=== PATIENT | male | born 1955 | race Caucasian/White ===

== ENCOUNTER 2017-03-14 06:24 | Inpatient (IN) | payer BC, OTHER ==
[2017-02-20 11:10] VITALS: BMI 36.0
--- NOTE | 2017-02-20 11:43 | PAT Medication Instructions ---
Service Date Feb 20, 2017. Current Home Medication List Albuterol Inhaler (Ventolin Inhaler), 2 PUFFS INH Q4HR PRN Multivitamin (Multivitamin), 1 TAB PO QAM Medication Instructions For Your Scheduled Surgery - Hold the following medications the morning of surgery: Multivitamin (Multivitamin), 1 TAB PO QAM - Take the following medications the morning of surgery with a sip of water: Albuterol Inhaler (Ventolin Inhaler), 2 PUFFS INH Q4HR PRN (bring with you to hospital morning of surgery) - Take the following medications as scheduled the night before surgery: Albuterol Inhaler (Ventolin Inhaler), 2 PUFFS INH Q4HR PRN If you have any questions please call us at [phone] (Paola Conrad PA-C) or [phone] or [phone]
[2017-02-20 12:14] LABS: BASO % 0.6 %; BASO ABS # 0.04 K/uL (0-0.2); COMPLETE YES; EOS % 2.3 %; HEMATOCRIT 45.3 % (42-52); IG% 0.1 %; LYMPH % 21.2 %; LYMPH ABS # 1.54 K/uL (1.2-3.4); MEAN CELL VOLUME 87.6 fL (80-100); MEAN CORPUSCULAR HGB CONC 34.2 g/dl (32-36); MEAN PLATELET VOLUME 11.1 fL (7.4-10.4); MONO % 9.2 %; NEUT % 66.6 %; PLATELET COUNT 239 K/uL (130-400); RED BLOOD COUNT 5.17 M/uL (4.7-6.1); WHITE BLOOD COUNT 7.25 K/uL (4.8-10.8)
[2017-02-20 12:18] LABS: URINE APPEARANCE CLEAR (CLEAR); URINE BILIRUBIN NEG (NEG); URINE COLOR YELLOW; URINE NITRITE NEG (NEG); URINE PH 5.5 (4.5-7.5); URINE SPECIFIC GRAVITY 1.021 (1.000-1.030); UROBILINOGEN NEG (NEG); ZZUR CULT IF INDIC CLEAN CATCH NO
[2017-02-20 12:20] LABS: MANUAL MICROSCOPIC REQUIRED? NO; REVIEW REQ? NO
--- NOTE | 2017-02-20 12:25 | DIAGNOSTIC IMAGING REPORT ---
CHEST PREADMISSION(PA/LAT) HISTORY: Preop. COMPARISON: Chest 06/06/2012. FINDINGS: The lungs are clear. Cardiac silhouette is normal in size. No pleural effusions. No pneumothorax. IMPRESSION: No acute process. Electronically signed by: Guy Vasquez M.D. 02/20/2017 12:23 PM Dictated Date/Time: 02/20/2017 12:22 PM
[2017-02-20 12:31] LABS: PARTIAL THROMBOPLASTIN RATIO 1.1; PROTHROMBIN TIME (PATIENT) 10.7 SECONDS (9.0-12.0)
[2017-02-20 13:13] LABS: ESTIMATED AVERAGE GLUCOSE 128 mg/dl; HA1C FLAG Normal (Normal)
[2017-02-20 13:21] LABS: BUN/CREATININE RATIO 11.3 (10-20); CALCIUM 8.8 mg/dl (8.5-10.1); CREATININE 1.2 mg/dl (0.60-1.40); POTASSIUM 3.8 mmol/L (3.5-5.1)
--- NOTE | 2017-03-13 20:28 | HISTORY & PHYSICAL EXAMINATION ---
DATE OF ADMISSION: 03/14/2017 CHIEF COMPLAINT: Chronic left knee pain. HISTORY OF PRESENT ILLNESS: This is a 61-year-old male patient of Dr. Ramirez'norm complaining of chronic left knee pain, longstanding, now progressively getting worse. The patient has been diagnosed with end-stage osteoarthritis per clinical and radiographic exams. The patient has failed conservative treatment including anti-inflammatories, Tylenol, intra-articular injections, home physical therapy and the use of a brace. The patient has increased pain with weightbearing activities and his pain does interfere with his activities of daily living. PAST MEDICAL HISTORY: Hypertension, asthma, mild sleep apnea and kidney stones. SOCIAL HISTORY: Nonsmoker and nondrinker. PAST SURGICAL HISTORY: Right total knee arthroplasty and left knee cartilage surgery. REVIEW OF SYSTEMS: The patient complains of chronic left knee pain. Otherwise denies any shortness of breath, chest pain, nausea, vomiting or other joint complaints. FAMILY HISTORY: Noncontributory. MEDICATION: Only a multivitamin daily. ALLERGIES: No known drug allergies. PHYSICAL EXAMINATION: GENERAL: Well-developed and well-nourished 61-year-old male, in no acute distress. He is alert, oriented x3 and pleasant. HEENT: Normocephalic and atraumatic. Extraocular motions are intact. Pupils are equal and reactive to light. HEART: Regular rate and rhythm. No murmurs are appreciated. LUNGS: Clear. ABDOMEN: Soft and nontender, bowel sounds are present. EXTREMITIES: Left knee reveals limited range of motion of 0-125 degrees. He is stable. He has previous scars noted from surgeries in the past. He has mild effusion. He has crepitation with passive range of motion. He has 5/5 strength. NEUROLOGIC: Neurovascularly, he is intact in his left lower extremity. DIAGNOSES: Left knee end-stage osteoarthritis, hypertension, asthma, mild sleep apnea and kidney stones. PLAN: The patient was advised of his diagnoses. Indications, risks, benefits, and postop course have all been reviewed. The patient wishes to proceed with a left total knee arthroplasty. Necessary consent forms, preoperative testing and clearances will be obtained.
[~2017-03-14] VITALS: Ht 165.1 cm; Wt 100.0 kg
[2017-03-14] VITALS (8 sets, daily range): BP systolic 130–160; BP diastolic 63–105; PULSE 52–91; TEMP 36.4–36.7; O2SAT 93–96; Ht 165.1 cm; Wt 100.0 kg
[~2017-03-14 06:24] MED LIST: ACETAMINOPHEN 500 MG TAB PO SCH; ALBUAER19 INH; CEFAZOLIN 2000 MG/60 ML D5W 60 ML IV SCH; CeleBREX 200 MG CAP PO SCH; DEXAMETHASONE 4 MG TAB PO SCH; FAMOTIDINE 20 MG TAB PO SCH; GABAPENTIN 300 MG CAP PO SCH; LACTATED RINGER'S 1000ML 1,000 ML IV SCH; METOCLOPRAMIDE HCL 10 MG TAB PO SCH; MULT-506 PO; ROPIVACAINE 5MG/ML 30 ML 150 MG, BUPIVACAINE/EPINEPHR 0.5% MPF 30 ML, KETOROLAC TROMETH... INFIL SCH
[2017-03-14] MEDS ORDERED: BUPIVACAINE 0.5 % 5 MG/1 ML PF 10ML VIAL ONE (06:36)
--- NOTE | 2017-03-14 07:11 | History & Physical Bridge Note ---
H&P Re-Evaluation Bridge Note: I have examined the patient, reviewed the History & Physical and in the interval since the performance of the History & Physical I have noted the following changes of clinical significance: No changes noted
[2017-03-14] MEDS ORDERED: MIDAZOLAM HCL 1 MG/ML 2ML VIAL ONE (07:20)
[2017-03-14] MEDS ORDERED: FENTANYL CITRATE INJ 50 MCG/1 ML 2 ML VIAL ONE (07:20)
[2017-03-14] MEDS ORDERED: POVIDONE-IODINE OP SOLN 30 ML BTL ONE (07:49)
[2017-03-14] MEDS ORDERED: ORTHO JOINT ANESTHETIC ONE (07:49)
[2017-03-14] MEDS ORDERED: BACITRACIN 50000 UNIT VIAL ONE (07:49)
[2017-03-14] MEDS ORDERED: PROPOFOL IV EMULSION 10 MG/ML 20 ML VIAL IV ONE (09:00)
[2017-03-14] MEDS ORDERED: ATROPINE SULFATE 0.1 MG/ML 5ML SYR IV PRN (09:15)
[2017-03-14] MEDS ORDERED: ONDANSETRON INJ 2 MG/ML 2 ML VIAL IV PRN (09:15)
[2017-03-14] MEDS ORDERED: FENTANYL CITRATE INJ 50 MCG/1 ML 2 ML VIAL IV PRN (09:15)
[2017-03-14] MEDS ORDERED: EpHEDrine SULFATE INJ 50 MG/ML AMP IV PRN (09:15)
--- NOTE | 2017-03-14 10:21 | [facility] Operative Report ---
Operative Report Operative Date Mar 14, 2017. Pre-Operative Diagnosis Left knee end stage osteoarthritis Post-Operative Diagnosis same Procedure(s) Performed left tka Surgeon Dr. Ramirez Desktop Administrator Surgeon(s) Cristhian Perez PA-C Estimated Blood Loss 5 cc Findings partial acl tear grade 4 djd medial comp varus knee subluxation medial Specimens A:Left knee bone and tissue Drains 2 hemovac Anesthesia spinal regional block and orthomix Complication(s) None Disposition Recovery Room / PACU Indications end stage djd instability I attest to the content of the Intraoperative Record and any orders documented therein. Any exceptions are noted below.
[2017-03-14] MEDS ORDERED: MoRPHine SULFATE 2 MG/ML CARP IV PRN (11:00)
[2017-03-14] MEDS ORDERED: TAMSULOSIN HCL 0.4 MG CAP PO PRN (11:00)
[2017-03-14] MEDS ORDERED: ALBUTEROL HFA 8 GM INHALER INH PRN (11:00)
[2017-03-14] MEDS ORDERED: ALUMINUM/MAGNESIUM/SIMETH (MAALOX MAX) 30 ML UDC PO PRN (11:00)
[2017-03-14] MEDS ORDERED: BISACODYL 10 MG SUPP PR PRN (11:00)
[2017-03-14] MEDS ORDERED: MAGNESIUM HYDROXIDE SUSP 30 ML UDC PO PRN (11:00)
--- NOTE | 2017-03-14 11:37 | DIAGNOSTIC IMAGING REPORT ---
LEFT KNEE 1 OR 2 VIEWS ROUTINE CLINICAL HISTORY: Degenerative arthritis COMPARISON: None. DISCUSSION: There are postsurgical changes of a total left knee arthroplasty and patellar resurfacing. The femoral and tibial components appear well seated. Overlying skin aruna and surgical drains are evident. There is air in the soft tissues consistent with the history of recent surgery. IMPRESSION: Postsurgical changes of a total left arthroplasty Electronically signed by: Asaf Alcantar M.D. 03/14/2017 11:35 AM Dictated Date/Time: 03/14/2017 11:35 AM
--- NOTE | 2017-03-14 12:29 | Anesthesiology Progress Note ---
Anesthesia Post Op Note Date & Time Mar 14, 2017 at 12:28 Vital Signs Pain Intensity: 0 Vital Signs Past 12 Hours Date Time Temp Pulse Resp B/P Pulse Ox O2 Delivery O2 Flow Rate FiO2 03/14/17 11:45 55 12 128/84 96 Nasal Cannula 2 03/14/17 11:30 36.0 58 13 136/87 94 Nasal Cannula 2 03/14/17 11:20 56 12 151/88 95 Nasal Cannula 2 03/14/17 11:10 80 20 144/87 96 Nasal Cannula 2 03/14/17 11:00 67 15 126/89 97 Nasal Cannula 2 03/14/17 10:52 36.0 76 20 152/98 97 Nasal Cannula 2 03/14/17 06:49 36.7 52 18 160/98 96 Room Air Notes Mental Status: alert / awake / arousable, participated in evaluation Pt Amnestic to Procedure: Yes Nausea / Vomiting: adequately controlled Pain: adequately controlled Airway Patency, RR, SpO2: stable & adequate BP & HR: stable & adequate Hydration State: stable & adequate Neuraxial Anesthesia: was administered, sensory block is resolving Anesthetic Complications: no major complications apparent
[2017-03-14] MEDS ORDERED: MoRPHine SULFATE 4 MG/ML 1 ML CARP\\VIAL IV PRN (12:45)
[2017-03-14] MEDS ORDERED: MoRPHine SULFATE 10 MG/ML CARP/VIAL IV PRN (12:45)
[2017-03-14] MEDS: TRANEXAMIC ACID INJ 1,000 MG in SODIUM CHLORIDE 0.9% 100ML 100 ML IV SCH (14:03)
[2017-03-14] MEDS: D5W AND 1/2NSS + 20MEQ KCL 1,000 ML IV SCH ×2 (14:06→22:40)
[2017-03-14] MEDS: KETOROLAC TROMETHAMINE 30 MG/ML VIAL IV. SCH ×3 (14:12→22:40)
[2017-03-14] MEDS: FERROUS GLUCONATE 324 MG TAB PO SCH ×2 (14:23→17:53)
[2017-03-14] MEDS: ACETAMINOPHEN 500 MG TAB PO SCH ×2 (14:23→22:40)
--- NOTE | 2017-03-14 14:50 | Progress Note ---
Progress Note Date of Service Mar 14, 2017. Progress Note Patient was seen and evaluated with BETH Nix. Patient is status post left knee arthroplasty; pod # 1 Pain is controlled, denies any chest pain, SOB, nausea, vomiting, fever, chills Exam: Gen: AAOX3, no distress Lungs: clear, no wheezing Heart: S1, S2 normal, no murmurs Ext: S/P left knee arthroplasty A/P: 1. S/P LEFT KNEE ARTHROPLASTY -POD # 1 -Pain mx, Wound care, DVT prophylaxis, PT/OT per primary team -Monitor H & H 2. HTN- Not on any medications at home. In past was on HCTZ -Will monitor, try to control pain medications 3.Hx OF ASTHMA -Stable, no signs of exacerbation DVT/GI prophylaxis Protonix daily, DVT prophylaxis per primary team Agree with A/P of BETH Nix
--- NOTE | 2017-03-14 14:57 | Medical Consult ---
Consultation Date of Consultation: Mar 14, 2017. Attending Physician: Philippe Ramirez M.D. Reason for Consultation: med mgmt History of Present Illness This is a 61 y/o male with PMHx of HTN who presents POD 0 s/p L TKA performed by Dr. Ramirez. Pt is doing well post-operatively. He denies any pain and ate lunch with no issues. Pt denies fever/chills, chest pain, SOB, abd pain, N/V, bowel or bladder issues, LE edema, calf pain, lightheadedness/dizziness. Past Medical/Surgical History Medical Problems: (1) HTN (hypertension) Status: Chronic Surgical Problems: (1) Hx of total knee arthroplasty Permanent Comment: R TKA 2011 and L TKA 03/14/17 Status: Resolved Social History Smoking Status: Never Smoker Smokeless Tobacco Use: Yes (1 can per day x 45 years) Alcohol Use: none Drug Use: none Marital Status: ( in 2003 from ovarian CA) Allergies Coded Allergies: No Known Allergies (Unverified , 03/14/17) Home Medications Active Reported Multivitamin (Multivitamins) Tab 1 Tab PO QAM Ventolin Inhaler (Albuterol) Aers 2 Puffs INH Q4HR PRN Current Inpatient Medications Current Inpatient Medications Medications (Trade) Dose Ordered Sig/Dario Route Start Time Stop Time Status Last Admin Dose Admin Lactated Ringer's 1,000 ml @ 15 mls/hr Q24H IV 03/14/17 06:00 03/15/17 05:59 03/14/17 07:09 15 MLS/HR Cefazolin Sodium (Ancef 2000mg/60 ml D5W) 60 ml @ 100 mls/hr PREOP IV 03/14/17 06:00 03/14/17 18:00 03/14/17 08:45 100 MLS/HR Acetaminophen (Tylenol Tab) 1,000 mg PREOP PO 03/14/17 06:00 03/14/17 18:00 03/14/17 07:18 1,000 MG Celecoxib (CeleBREX CAP) 200 mg PREOP PO 03/14/17 06:00 03/14/17 18:00 03/14/17 07:18 200 MG Dexamethasone (Decadron Tab) 8 mg PREOP PO 03/14/17 06:00 03/14/17 18:00 03/14/17 07:18 8 MG Famotidine (Pepcid Tab) 20 mg PREOP PO 03/14/17 06:00 03/14/17 18:00 03/14/17 07:19 20 MG Gabapentin (Neurontin Cap) 600 mg PREOP PO 03/14/17 06:00 03/14/17 18:00 03/14/17 07:19 600 MG Metoclopramide HCl 10 mg 10 mg PREOP PO 03/14/17 06:00 03/14/17 18:00 03/14/17 07:19 10 MG Tranexamic Acid 1000 mg/Sodium Chloride 110 ml @ 660 mls/hr TODAY@06,0630 IV 03/14/17 06:00 03/14/17 18:00 Lactated Ringer's (Lr 1000ml) 1,000 ml @ 60 mls/hr [id number] IV 03/14/17 06:00 03/14/17 22:39 03/14/17 07:09 60 MLS/HR Albuterol (Ventolin Hfa Inhaler) 2 puffs Q4H PRN INH 03/14/17 11:00 04/13/17 10:59 Morphine Sulfate 2 mg 2 mg Q4HWA PRN IV 03/14/17 11:00 03/28/17 10:59 Potassium Chloride/Dextrose/ Sod Cl 1,000 ml @ 100 mls/hr Q10H IV 03/14/17 13:00 03/15/17 10:52 03/14/17 14:06 100 MLS/HR Cefazolin Sodium/ Dextrose (Ancef Iv/D5 50ml) 60 ml @ 100 mls/hr Q8H IV 03/14/17 16:00 03/15/17 00:35 Ketorolac Tromethamine (Toradol Inj) 30 mg Q6H IV. 03/14/17 14:00 03/15/17 08:01 03/14/17 14:12 30 MG Celecoxib (CeleBREX CAP) 200 mg BID PO 03/15/17 21:00 04/14/17 20:59 Oxycodone HCl (Roxicodone Immediate Rel Tab) 1 TABLET FOR PAIN RATING... Q4H PRN PO 03/14/17 11:00 03/28/17 10:59 Oxycodone HCl (Oxycontin Tab) 10 mg Q12 PO 03/14/17 21:00 03/28/17 20:59 Acetaminophen (Tylenol Tab) 1,000 mg Q8H PO 03/14/17 14:00 04/13/17 10:59 03/14/17 14:23 1,000 MG Magnesium Hydroxide (Milk Of Magnesia Susp) 30 ml Q6H PRN PO 03/14/17 11:00 04/13/17 10:59 Bisacodyl (Dulcolax Supp) 10 mg DAILY PRN RI 03/14/17 11:00 04/13/17 10:59 Senna (Senokot Tab) 17.2 mg HS PO 03/14/17 21:00 04/13/17 20:59 Docusate Sodium (coLACE CAP) 100 mg BID PO 03/14/17 21:00 04/13/17 20:59 Al Hydrox/Mg Hydrox/Simethicone (Maalox Max Susp) 15 ml Q4H PRN PO 03/14/17 11:00 04/13/17 10:59 Multivitamins (Multivitamin Tab) 1 tab QAM PO 03/15/17 09:00 04/14/17 08:59 Ferrous Gluconate (Ferrous Gluconate Tab) 324 mg TIDM PO 03/14/17 12:30 04/13/17 12:29 03/14/17 14:23 324 MG Pantoprazole Sodium (Protonix Tab) 40 mg QAM PO 03/15/17 09:00 04/14/17 08:59 Tamsulosin HCl (Flomax Cap) 0.4 mg QAM PRN PO 03/14/17 11:00 04/13/17 10:59 Aspirin (Ecotrin Tab) 81 mg BID PO 03/14/17 21:00 04/13/17 20:59 Morphine Sulfate (MoRPHine SULFATE INJ) 4 mg Q4HWA PRN IV 03/14/17 12:45 03/28/17 12:44 Morphine Sulfate (MoRPHine SULFATE INJ) 6 mg Q4HWA PRN IV 03/14/17 12:45 03/28/17 12:44 Review of Systems Constitutional: No chills, No fatigue, No fever, No weakness Eyes: No worsening of vision ENT: No hearing loss Respiratory: No cough, No shortness of breath Cardiovascular: No chest pain, No claudication, No edema Abdomen: No constipation, No diarrhea, No nausea, No pain, No vomiting Musculoskeletal: No calf pain, No swelling Genitourinary - Male: No dysuria Neurologic: No weakness Psychiatric: No depression symptoms Endocrine: No fatigue Hematologic / Lymphatic: No abnormal bleeding/bruising Integumentary: No new/changing skin lesions Physical Exam Date Time Temp Pulse Resp B/P Pulse Ox O2 Delivery O2 Flow Rate FiO2 03/14/17 14:05 36.4 88 16 156/99 94 Nasal Cannula 2.0 03/14/17 13:05 88 16 157/105 93 Nasal Cannula 2.0 03/14/17 12:33 36.4 60 18 140/86 95 Room Air 03/14/17 12:05 96 Nasal Cannula 2.0 03/14/17 12:05 95 Nasal Cannula 2.0 03/14/17 12:05 36.5 62 15 138/76 96 Nasal Cannula 2.0 03/14/17 11:45 55 12 128/84 96 Nasal Cannula 2 03/14/17 11:30 36.0 58 13 136/87 94 Nasal Cannula 2 03/14/17 11:20 56 12 151/88 95 Nasal Cannula 2 03/14/17 11:10 80 20 144/87 96 Nasal Cannula 2 03/14/17 11:00 67 15 126/89 97 Nasal Cannula 2 03/14/17 10:52 36.0 76 20 152/98 97 Nasal Cannula 2 03/14/17 06:49 36.7 52 18 160/98 96 Room Air General Appearance: WD/WN, no apparent distress, + pertinent finding (Pt is sitting up in bed with no family at bedside ) Head: normocephalic, atraumatic Eyes: normal inspection ENT: hearing grossly normal Neck: supple Respiratory/Chest: chest non-tender, lungs clear, normal breath sounds, no respiratory distress Cardiovascular: regular rate, rhythm, no edema, no murmur Abdomen/GI: normal bowel sounds, non tender, soft Back: normal inspection Extremities/Musculoskelatal: no calf tenderness, no pedal edema, + pertinent finding (surgical dressing in place over L knee with 1 drain noted containing blood) Neurologic/Psych: alert, normal mood/affect, oriented x 3 Skin: normal color, warm/dry Assessment & Plan L KNEE DJD S/P L TKA -POD 0; surgery performed by Dr. Ramirez -post-operative pain well managed -monitor for acute blood loss with daily H&H -pt encouraged to utilize spirometry to prevent post-op infection -PT/OT -activity and wound care orders per ortho protocol -will continue to follow HTN -BP stable -not on any meds -monitor DVT PROPHYLAXIS -per ortho protocol CODE STATUS -FULL CODE status DISPO -per ortho. Pt seen in collaboration with Dr. Hopkins. Please see her addendum for further details. Thanks! -Of note: patient will be seen by Dr. Mckeon starting tomorrow AM.
[2017-03-14] MEDS: CEFAZOLIN IV 2,000 MG in DEXTROSE 5% 50ML 50 ML IV SCH ×2 (15:50→23:49)
--- NOTE | 2017-03-14 16:25 | OPERATIVE REPORT ---
DATE OF OPERATION: 03/14/2017 INDICATION FOR PROCEDURE: The patient is a 61-year-old male who is status post a right knee replacement in the past. His left knee has had progressive osteoarthritis. Now, he has subluxation of the femur on the tibia. He is bone on bone in flexion views with some flattening of the femoral condyle. Primarily a varus knee with medial compartment OA. PREOPERATIVE DIAGNOSIS: End-stage osteoarthritis, left knee. POSTOPERATIVE DIAGNOSIS: Same. PROCEDURE: Left total knee arthroplasty. SURGEON: Dr. Ramirez. SOLID WASTE COLLECTION WORKER: Cristhian Perez PA-C. ANESTHESIA: Spinal IV sedation, regional block and Orthomix. OPERATION AND FINDINGS: OPERATIVE PROCEDURE: The patient was taken to the operating room, anesthetized under spinal anesthetic with regional block. The patient's left leg was examined and demonstrated some instability with Natalia exam and some pseudolaxity medially and some subluxation of the femur on the tibia. The pneumatic tourniquet was placed on left upper thigh. Left lower extremity was prepped and draped in sterile fashion using ChloraPrep. Knee exam did also show that he had good range of motion. The leg was elevated, exsanguinated with Esmarch bandage. Pneumatic tourniquet was raised to 325 mmHg. Anterior incision was made across the left knee. Skin was incised sharply. Subcutaneous flaps were elevated. We used his old incision where he had an old scar from his previous surgery in the past which was S-shaped medial parapatellar type incision and this incision was used for the procedure and extended slightly proximally to length that incision. We elevated the subcutaneous flaps and incised the medial retinaculum, extended the incision up into the mid third of the quadriceps tendon and extended it down to the medial tibial tubercle. The patient had grade 4 DJD medial compartment, more toward the flexion surface and had a partial ACL tear. Patella was normal. I used the Claire \T\ Nephew Journey 2.0, total knee arthroplasty system using [employer] MRI templating. It was sized for an 8 femur and 7 tibia. The knee was exposed by excising the infrapatellar fat pad, excising the menisci, excising the cruciate ligaments. We did releases around the proximal medial tibial plateau. I excised the fat pad over the anterior femur for placement of the component in that area and released lateral synovial bands. The infrapatellar fat pad was resected. The femur was then exposed. The femoral cutting block was pinned in position. Distal femoral cut was made. The 5-1 cutting block was placed with a size 8 femur. The anterior, posterior and chamfer cuts were made. Then the knee was extended and then a subperiosteal peel lateral release was performed around the patella. Patella width was measured and width was reproduced using a freehand cut technique and a 35 patella component was appropriate size. Drill holes were made for the pegs and the excess lateral facet was beveled off to prevent any impingement. Then attention was taken back to the tibia which was subluxed and the tibial cutting block was pinned in position and the proximal tibial cut was made. Lamina switch tender was used to assess ligamentous balance in extension and flexion, ligaments were balanced. Then the tibia was re-exposed and the size 7 tibial trial was externally rotated in line with the tibial tubercle, pinned in position. The punch for the stem was used. Then the 8 femoral trial was inserted, centered and the notch cutting devices were used. A collet was placed and then the 10 polyethylene trial insert was placed in position and the patient had balanced ligaments through full range of motion and the patella tracked centrally. The trials were removed. The Orthomix was injected per protocol. The knee was copiously irrigated with pulsatile lavage antibiotic solution and bacitracin. The final components were then cemented with Simplex cement. Final components were the 8 Oxinium posterior stabilized left femoral component, the 7 tibial base plate, the 10 mm posterior stabilized poly insert and 35 mm patella. While cement cures we used a Betadine soap protocol. Then after cement cured, the knee was copiously irrigated with antibiotic solution with bacitracin. Two drains were brought out laterally. Quadriceps tendon and medial retinaculum were then closed with interrupted [id number] #1 Vicryl sutures. More Orthomix was injected into subcutaneous tissues. Subcutaneous tissues closed with interrupted 2-0 Vicryl, skin closed with aruna. Sterile dressing was applied and the patient tolerated the procedure well. Cristhian Perez PA-C was my first cook. He functioned as my first cook for the entire procedure. He assisted in patient positioning, prepping, draping, soft tissue retraction, leg positioning, instrument management during the procedure and performed the fascial, subcutaneous and skin closure and will participate in postoperative care of the patient. I attest to the content of the Intraoperative Record and any orders documented therein. Any exceptio ns are noted below.
[2017-03-14] MEDS: SENNA 8.6 MG TAB PO SCH (20:30)
[2017-03-14] MEDS: OXYCODONE HCL 10 MG TABCR (OXYCONTIN) PO SCH (20:30)
[2017-03-14] MEDS: DOCUSATE SODIUM 100 MG CAP PO SCH (20:31)
[2017-03-14] MEDS: ASPIRIN 81 MG ECTAB PO SCH (20:31)
[2017-03-15] MEDS: KETOROLAC TROMETHAMINE 30 MG/ML VIAL IV. SCH ×2 (01:41→08:28)
[2017-03-15 03:27] VITALS: BP 109/64; PULSE 66; TEMP 36.7; O2SAT 95
[2017-03-15] MEDS: ACETAMINOPHEN 500 MG TAB PO SCH ×3 (05:40→21:48)
[2017-03-15 06:28] LABS: HEMATOCRIT 39.4 % (42-52); MEAN CELL VOLUME 89.7 fL (80-100); MEAN CORPUSCULAR HEMOGLOBIN 30.1 pg (25-34); MEAN CORPUSCULAR HGB CONC 33.5 g/dl (32-36); PLATELET COUNT 204 K/uL (130-400); RED BLOOD COUNT 4.39 M/uL (4.7-6.1); WHITE BLOOD COUNT 22.46 K/uL (4.8-10.8)
[2017-03-15 06:54] LABS: BUN/CREATININE RATIO 14.3 (10-20); CALCIUM 8.2 mg/dl (8.5-10.1); CREATININE 1.3 mg/dl (0.60-1.40); POTASSIUM 3.9 mmol/L (3.5-5.1)
--- NOTE | 2017-03-15 07:37 | Anesthesiology Progress Note ---
Anesthesia Post Op Note Date & Time Mar 15, 2017 at 07:36 Vital Signs Pain Intensity: 0.0 Vital Signs Past 12 Hours Date Time Temp Pulse Resp B/P Pulse Ox O2 Delivery O2 Flow Rate FiO2 03/15/17 03:27 36.7 66 16 109/64 95 Room Air 03/14/17 23:45 Room Air 03/14/17 23:33 36.7 69 16 130/63 94 Room Air 03/14/17 21:31 Room Air 03/14/17 20:38 36.6 70 18 133/79 94 Room Air Notes Mental Status: alert / awake / arousable, participated in evaluation Pt Amnestic to Procedure: Yes Nausea / Vomiting: adequately controlled Pain: adequately controlled Airway Patency, RR, SpO2: stable & adequate BP & HR: stable & adequate Hydration State: stable & adequate Neuraxial Anesthesia: was administered, sensory block resolved Anesthetic Complications: no major complications apparent
[2017-03-15 07:40] VITALS: BP 159/76; PULSE 65; TEMP 36.5; O2SAT 94
--- NOTE | 2017-03-15 08:23 | Orthopedic Progress Note ---
Orthopedic Progress Note Date of Service Mar 15, 2017. Subjective Post OP Day: 1 Reports: feeling well, pain controlled w PO medications, Denies: SOB, calf pain , chest pain, complaints, light headedness, nausea / vomiting Objective calves soft nontender, N/V intact, capillary refill less than 2 sec., dressing C /D/I, A&O x3, toes mobile Date Time Temp Pulse Resp B/P Pulse Ox O2 Delivery O2 Flow Rate FiO2 03/15/17 07:40 36.5 65 18 159/76 94 Room Air 03/15/17 07:40 Room Air 03/15/17 03:27 36.7 66 16 109/64 95 Room Air 03/14/17 23:45 Room Air 03/14/17 23:33 36.7 69 16 130/63 94 Room Air 03/14/17 21:31 Room Air 03/14/17 20:38 36.6 70 18 133/79 94 Room Air 03/14/17 15:37 Nasal Cannula 2.0 03/14/17 15:01 36.6 91 16 145/91 95 Nasal Cannula 2.0 03/14/17 14:05 36.4 88 16 156/99 94 Nasal Cannula 2.0 03/14/17 13:05 88 16 157/105 93 Nasal Cannula 2.0 03/14/17 12:33 36.4 60 18 140/86 95 Room Air 03/14/17 12:05 96 Nasal Cannula 2.0 03/14/17 12:05 95 Nasal Cannula 2.0 03/14/17 12:05 36.5 62 15 138/76 96 Nasal Cannula 2.0 03/14/17 11:45 55 12 128/84 96 Nasal Cannula 2 03/14/17 11:30 36.0 58 13 136/87 94 Nasal Cannula 2 03/14/17 11:20 56 12 151/88 95 Nasal Cannula 2 03/14/17 11:10 80 20 144/87 96 Nasal Cannula 2 03/14/17 11:00 67 15 126/89 97 Nasal Cannula 2 03/14/17 10:52 36.0 76 20 152/98 97 Nasal Cannula 2 Laboratory Results 24 Hours: Test 03/15/17 05:46 Hematocrit 39.4 % Hemoglobin 13.2 g/dL Assessment & Plan Assessment: POD #1, Left TKA Plan: PT/OT DVT proph- ASA D/C planning- [place] [facility] Appreciate medicine input Inhouse Planning Pain Management: Celebrex, Oxycontin, Morphine, PO Tylenol, Oxy IR, Vicodin DVT Prophylaxis: TEDs, SCDs, ASA Discharge Planning Discharge Planning: residential facility Pain Management: Celebrex, Oxycontin, PO Tylenol, Oxy IR DVT Prophylaxis: TEDs, ASA Therapy: Physical Therapy, Occupational Therapy
[2017-03-15] MEDS: FERROUS GLUCONATE 324 MG TAB PO SCH ×3 (08:28→17:59)
[2017-03-15] MEDS: OXYCODONE HCL 10 MG TABCR (OXYCONTIN) PO SCH ×2 (08:29→20:15)
[2017-03-15] MEDS: D5W AND 1/2NSS + 20MEQ KCL 1,000 ML IV SCH (08:29)
[2017-03-15] MEDS: PANTOprazole SOD 40 MG TAB PO SCH (08:30)
[2017-03-15] MEDS: DOCUSATE SODIUM 100 MG CAP PO SCH ×2 (08:30→20:14)
[2017-03-15] MEDS: ASPIRIN 81 MG ECTAB PO SCH ×2 (08:30→20:14)
[2017-03-15] MEDS: MULTIVITAMIN TAB PO SCH (08:31)
[2017-03-15 12:10] VITALS: BP 133/75; PULSE 60; TEMP 36.4; O2SAT 96
[2017-03-15 15:25] VITALS: BP 153/87; PULSE 60; TEMP 36.6; O2SAT 97
--- NOTE | 2017-03-15 18:05 | Progress Note ---
Internal Med Progress Note Date of Service: Mar 15, 2017. Provider Documentation: SUBJECTIVE: S/P LEFT KNEE TKA PAIN IS UNDER CONTROL NO SOB NO COMPLAINTS OBJECTIVE: Vital Signs-as noted below Exam: General-Alert and oriented ENT-normal hearing Neck-no neck masses Lungs-cta b/l no wheezing or crackles Heart-s1 and s2 heard regular rate and rhythm no murmurs Abdomen-soft bowel sounds present non tender no distension Extremities-S/P LEFT TKA DRESSING AND RAIN INTACT Neuro-Alert and oriented moves extremities Lab data as noted below. ASSESSMENT & PLAN: L KNEE DJD S/P L TKA -POD [address] Ramirez management as per ortho HTN borderline not on meds stable will monitor DVT PROPHYLAXIS as per ortho DISPOSITION as per ortho Vital Signs: Date Time Temp Pulse Resp B/P Pulse Ox O2 Delivery O2 Flow Rate FiO2 03/15/17 15:25 36.6 60 18 153/87 97 Room Air 03/15/17 12:10 36.4 60 14 133/75 96 Room Air 03/15/17 07:40 36.5 65 18 159/76 94 Room Air 03/15/17 07:40 Room Air 03/15/17 03:27 36.7 66 16 109/64 95 Room Air 03/14/17 23:45 Room Air 03/14/17 23:33 36.7 69 16 130/63 94 Room Air 03/14/17 21:31 Room Air 03/14/17 20:38 36.6 70 18 133/79 94 Room Air Lab Results: Results Past 24 Hours Test 03/15/17 05:46 Range/Units White Blood Count 22.46 4.8-10.8 K/uL Red Blood Count 4.39 4.7-6.1 M/uL Hemoglobin 13.2 14.0-18.0 g/dL Hematocrit 39.4 42-52 % Mean Corpuscular Volume 89.7 80-100 fL Mean Corpuscular Hemoglobin 30.1 25-34 pg Mean Corpuscular Hemoglobin Concent 33.5 32-36 g/dl RDW Standard Deviation 43.3 36.4-46.3 fL RDW Coefficient of Variation 13.2 11.5-14.5 % Platelet Count 204 130-400 K/uL Mean Platelet Volume 12.0 7.4-10.4 fL Sodium Level 141 136-145 mmol/L Potassium Level 3.9 3.5-5.1 mmol/L Chloride Level 110 98-107 mmol/L Carbon Dioxide Level 25 21-32 mmol/L Anion Gap 6.0 3-11 mmol/L Blood Urea Nitrogen 19 7-18 mg/dl Creatinine 1.30 0.60-1.40 mg/dl Est Creatinine Clear Calc Drug Dose 64.9 ml/min Estimated GFR () 68.3 Estimated GFR (Non- 58.9 BUN/Creatinine Ratio 14.3 10-20 Random Glucose 134 70-99 mg/dl Calcium Level 8.2 8.5-10.1 mg/dl
[2017-03-15] MEDS: SENNA 8.6 MG TAB PO SCH (20:16)
[2017-03-15] MEDS: CeleBREX 200 MG CAP PO SCH (20:16)
[2017-03-15 23:16] VITALS: BP 135/79; PULSE 61; TEMP 36.5; O2SAT 96
[2017-03-16] MEDS: ACETAMINOPHEN 500 MG TAB PO SCH ×3 (05:28→21:19)
[2017-03-16 05:50] VITALS: BP 156/88; PULSE 64; TEMP 36.8; O2SAT 91
[2017-03-16] MEDS: ASPIRIN 81 MG ECTAB PO SCH ×2 (07:54→21:18)
[2017-03-16] MEDS: MULTIVITAMIN TAB PO SCH (07:55)
[2017-03-16] MEDS: CeleBREX 200 MG CAP PO SCH ×2 (07:55→21:17)
[2017-03-16] MEDS: DOCUSATE SODIUM 100 MG CAP PO SCH ×2 (07:55→21:17)
[2017-03-16] MEDS: FERROUS GLUCONATE 324 MG TAB PO SCH ×3 (07:55→18:10)
[2017-03-16] MEDS: OXYCODONE HCL 10 MG TABCR (OXYCONTIN) PO SCH ×2 (07:55→21:17)
[2017-03-16] MEDS: PANTOprazole SOD 40 MG TAB PO SCH (07:55)
[2017-03-16] MEDS: OXYCODONE HCL IR 5 MG TAB (IMMEDIATE RELEASE) PO PRN ×2 (07:55→21:17)
--- NOTE | 2017-03-16 08:23 | Orthopedic Progress Note ---
Orthopedic Progress Note Date of Service Mar 16, 2017. Subjective Post OP Day: 2 Reports: feeling well, pain controlled w PO medications, Denies: SOB, calf pain , chest pain, complaints, light headedness, nausea / vomiting Objective calves soft nontender, N/V intact, capillary refill less than 2 sec., incision C /D/I, A&O x3, toes mobile Date Time Temp Pulse Resp B/P Pulse Ox O2 Delivery O2 Flow Rate FiO2 03/16/17 05:50 36.8 64 16 156/88 91 Room Air 03/15/17 23:16 36.5 61 18 135/79 96 Room Air 03/15/17 20:00 Room Air 03/15/17 15:25 36.6 60 18 153/87 97 Room Air 03/15/17 12:10 36.4 60 14 133/75 96 Room Air Assessment & Plan Assessment: POD #2, Left TKA Plan: PT/OT DVT proph- ASA D/C planning- [place] Sat Appreciate medicine input Inhouse Planning Pain Management: Celebrex, Oxycontin, Morphine, PO Tylenol, Oxy IR, Vicodin DVT Prophylaxis: TEDs, SCDs, ASA Discharge Planning Discharge Planning: alf facility Pain Management: Celebrex, Oxycontin, PO Tylenol, Oxy IR DVT Prophylaxis: TEDs, ASA Therapy: Physical Therapy, Occupational Therapy
[2017-03-16 14:59] VITALS: BP 160/90; PULSE 60; TEMP 36.4; O2SAT 97
--- NOTE | 2017-03-16 17:57 | Progress Note ---
Internal Med Progress Note Date of Service: Mar 16, 2017. Provider Documentation: SUBJECTIVE: S/P LEFT KNEE TKA denies any pain ambulating fine afebrile no complaints OBJECTIVE: Vital Signs-as noted below Exam: General-Alert and oriented ENT-normal hearing Neck-no neck masses Lungs-cta b/l no wheezing or crackles Heart-s1 and s2 heard regular rate and rhythm no murmurs Abdomen-soft bowel sounds present non tender no distension Extremities-S/P LEFT TKA DRESSING AND RAIN INTACT Neuro-Alert and oriented moves extremities Lab data as noted below. ASSESSMENT & PLAN: L KNEE DJD S/P L TKA -POD [address] Ramirez management as per ortho HTN borderline not on meds stable DVT PROPHYLAXIS as per ortho DISPOSITION as per ortho Vital Signs: Date Time Temp Pulse Resp B/P Pulse Ox O2 Delivery O2 Flow Rate FiO2 03/16/17 14:59 36.4 60 16 160/90 97 Room Air 03/16/17 08:32 Room Air 03/16/17 08:32 Room Air 03/16/17 05:50 36.8 64 16 156/88 91 Room Air 03/15/17 23:16 36.5 61 18 135/79 96 Room Air 03/15/17 20:00 Room Air
[2017-03-16] MEDS: SENNA 8.6 MG TAB PO SCH (21:18)
[2017-03-16 22:50] VITALS: BP 161/87; PULSE 60; TEMP 36.5; O2SAT 96
[2017-03-17] MEDS: ACETAMINOPHEN 500 MG TAB PO SCH (06:35)
[2017-03-17 07:09] VITALS: BP 157/89; PULSE 73; TEMP 36.4; O2SAT 94
--- NOTE | 2017-03-17 08:22 | Orthopedic Progress Note ---
Orthopedic Progress Note Date of Service Mar 17, 2017. Subjective Post OP Day: 3 Reports: feeling well, pain controlled w PO medications, Denies: SOB, calf pain , chest pain, complaints, light headedness, nausea / vomiting Objective calves soft nontender, N/V intact, capillary refill less than 2 sec., incision C /D/I, A&O x3, toes mobile Date Time Temp Pulse Resp B/P Pulse Ox O2 Delivery O2 Flow Rate FiO2 03/17/17 07:09 36.4 73 19 157/89 94 Room Air 03/16/17 22:50 36.5 60 16 161/87 96 Room Air 03/16/17 19:40 Room Air 03/16/17 14:59 36.4 60 16 160/90 97 Room Air 03/16/17 08:32 Room Air 03/16/17 08:32 Room Air Assessment & Plan Assessment: POD #3, Left TKA Plan: PT/OT DVT proph- ASA D/C planning- [place] today Appreciate medicine input Inhouse Planning Pain Management: Celebrex, Oxycontin, Morphine, PO Tylenol, Oxy IR, Vicodin DVT Prophylaxis: TEDs, SCDs, ASA Discharge Planning Discharge Planning: [facility] facility Pain Management: Celebrex, Oxycontin, PO Tylenol, Oxy IR DVT Prophylaxis: TEDs, ASA Therapy: Physical Therapy, Occupational Therapy
[2017-03-17 08:26] VITALS: BP 157/89; PULSE 73; TEMP 36.4; O2SAT 94
[2017-03-17] MEDS ORDERED: MULT-506 PO (08:26)
[2017-03-17] MEDS ORDERED: ACET-1138 PO (08:26)
[2017-03-17] MEDS ORDERED: PRVHFAIN INH (08:26)
[2017-03-17] MEDS ORDERED: FLM4 PO (08:26)
[2017-03-17] MEDS ORDERED: OXYSR10 PO (08:26)
[2017-03-17] MEDS ORDERED: FRRG PO (08:26)
[2017-03-17] MEDS ORDERED: ASPEC81 PO (08:26)
[2017-03-17] MEDS ORDERED: CLB200 PO (08:26)
[2017-03-17] MEDS ORDERED: RXC5 PO (08:27)
[2017-03-17] MEDS ORDERED: CLC100 PO (08:27)
[2017-03-17] MEDS ORDERED: MOMLX PO (08:27)
--- NOTE | 2017-03-17 08:29 | Discharge Instructions ---
Discharge Instructions Date of Service Mar 17, 2017. Admission Reason for Admission: Left Knee Degenerative Joint Disease Discharge Discharge Diagnosis / Problem: Left TKA Discharge Goals Goal(s): Improve function Activity Recommendations Activity Level: Assistance Required . Additional Information Patient informed of condition: Yes Advance Directives: Yes DNR: No Level of Care: Skilled Communicable Disease: No Prognosis: Improving Instructions / Follow-Up Instructions / Follow-Up ACTIVITY RECOMMENDATIONS: SELF CARE INSTRUCTIONS AFTER TOTAL KNEE REPLACEMENT A. You may need to continue a physical therapy program after discharge from the hospital. There are several options available to you. Your doctor will assist you in selecting the best one for you. 1. An out-patient facility 2 to 3 times a week for therapy or home therapy. 2. Continue working on all exercises taught to you in the hospital. Your goals should be to increase bending of your knee to 90 degrees and beyond and to fully straighten your knee. B. You may progress at your own pace from walking with a walker or crutches to a cane; then to no assistive devices. C. Make walking a part of your daily routine. Be up as much as comfortable with rest periods throughout the day. Rest with leg elevation is very important. Use the ice wrap frequently for the first 3-4 weeks. D. There are no restrictions on activities. 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 E. Wear the long elastic stockings (DAVID hose) 20 hours a day for 2 weeks after surgery. They can be removed several times a day for laundering and for a bath. F. You may shower, no tub baths until cleared by your doctor. SPECIAL CARE INSTRUCTIONS: VERY IMPORTANT TO READ AND REVIEW A. There are a few signs you need to watch for after you are home. Call [facility] [place] if you notice any of the followin. Increased severe knee pain. Some pain is expected especially when you exercise. 2. Increased swelling in your leg or knee; pain or swelling of the calf muscle in either lower leg. 3. Any fluid drainage from the incision. 4. Shortness of breath or chest pain. B. Please call [facility] [place] at if you have any concerns or questions about your operation or recovery. The doctor or his nurse will return your call promptly. C. You must take antibiotics before dental work, bladder, bowel or other surgery. Your doctor will provide you with a permanent care to carry describing this precaution. IMPORTANT: * REMEMBER TO TAKE ASPIRIN, 81 MG, TWICE DAILY FOR 4 WEEKS UNLESS OTHERWISE DIRECTED. THIS IS YOUR BLOOD THINNER. * HIGH RISK PATIENTS MAY BE PRESCRIBED A STRONGER BLOOD THINNER. THIS WILL BE PROVIDED AT DISCHARGE. * CALL IF INCREASED PAIN, REDNESS, DRAINAGE OR FEVER GREATER THAT 101. * WEAR DAVID HOSE 20 HOURS PER DAY FOR 2 WEEKS. * YOU MAY HAVE A LARGE BAND-AID LIKE DRESSING (SILVERON). THIS WILL REMAIN ON YOUR INCISION FOR 7 DAYS, THEN CAN BE REMOVED. IF INCISION IS LEAKING THROUGH DRESSING, CALL THE OFFICE . FOLLOW UP VISIT: If appointment is not already scheduled: Please call [facility] [place] to make a follow-up appointment for 2 weeks after your surgery at . Current Hospital Diet Patient's current hospital diet: Regular Diet Discharge Diet Recommended Diet: Regular Diet Procedures Procedures Performed: Left Total Knee Arthoplasty Pending Studies Studies pending at discharge: no Laboratory Results Hemoglobin A1c Test 02/20/17 11:54 Range/Units Estimated Average Glucose 128 mg/dl Hemoglobin A1c 6.1 H 4.5-5.6 % Medical Emergencies . Who to Call and When: Medical Emergencies: If at any time you feel your situation is an emergency, please call 911 immediately. . Non-Emergent Contact Non-Emergency issues call your: Primary Care Provider . . "Provider Documentation" section prepared by Orlando Kan. . Core Measure Problem Core Measures: VTE VTE Core Measures Date of VTE Diagnosis: Mar 17, 2017 Time of VTE Diagnosis: 08:27 Reason no anticoag overlap I/P: Treatment provided - N/A Reason no anticoag overlap @DC: Treatment provided - N/A [place] Drug Monitoring Program Search Results: patient reviewed within database, no issues identified
[2017-03-17] MEDS: PANTOprazole SOD 40 MG TAB PO SCH (08:33)
[2017-03-17] MEDS: FERROUS GLUCONATE 324 MG TAB PO SCH (08:33)
[2017-03-17] MEDS: OXYCODONE HCL IR 5 MG TAB (IMMEDIATE RELEASE) PO PRN (08:33)
[2017-03-17] MEDS: OXYCODONE HCL 10 MG TABCR (OXYCONTIN) PO SCH (08:33)
[2017-03-17] MEDS: MULTIVITAMIN TAB PO SCH (08:34)
[2017-03-17] MEDS: ASPIRIN 81 MG ECTAB PO SCH (08:34)
[2017-03-17] MEDS: CeleBREX 200 MG CAP PO SCH (08:34)
[2017-03-17] MEDS: DOCUSATE SODIUM 100 MG CAP PO SCH (08:34)
--- NOTE | 2017-03-21 08:54 | DISCHARGE SUMMARY ---
DISCHARGE DIAGNOSIS: Degenerative joint disease, left knee. SECONDARY DIAGNOSIS: Hypertension. CONSULTS: Dinah Mcgregor PA-C COMPLICATIONS: None. PROCEDURES: Left total knee arthroplasty performed by Dr. Ramirez on 03/14/2017. BRIEF HISTORY OF PRESENT ILLNESS: As dictated in the in history and physical. HOSPITAL SUMMARY: The patient was admitted on the above date and had the above-noted surgery performed which he tolerated well. [facility] was consulted for medical management during his stay. On his first postoperative day, he was feeling well and having no complaints. Calves were soft and nontender, neurovascularly intact. Dressings were clean, dry and intact. Toes were mobile. Vital signs were stable and he was afebrile. Hemoglobin was 13.2 and he was started on physical therapy protocol and continued on DVT prophylaxis and pain management. He was continued on his protocol for the next several days and the plans were for him to go to [facility] [place]. He continued to remain medically stable as well as orthopedically stable and by 03/17/2017, he was progressing well with his physical therapy, remained medically stable and it was felt he could be transferred to [place] for further physical therapy and care. For further review, please see chart. Lab and x-ray data, as per chart. DISCHARGE INSTRUCTIONS: The patient was discharged to [facility] [place] on 03/17/2017. DIET: Regular. ACTIVITY: Follow TK instruction sheets and special care instructions as noted. Follow up with Dr. Ramirez in 2 weeks from the day of surgery. DISCHARGE MEDICATIONS: Acetaminophen 1000 mg p.o. q. 8 hours, albuterol 2 puffs inhaled q. 4 hours p.r.n., aspirin 81 mg p.o. b.i.d., Celebrex 200 mg p.o. b.i.d., Colace 100 mg p.o. b.i.d., ferrous gluconate 324 mg p.o. t.i.d., milk of magnesia 30 mL p.o. q. 6 p.r.n., OxyContin 10 mg p.o. q. 12 hours, oxycodone 5-10 mg p.o. q. 4 hours p.r.n., tamsulosin 0.4 mg p.o. q.a.m. p.r.n. if unable to void. Continue taking multivitamin 1 tab p.o. q.a.m. and stop albuterol inhaler.
== END 2017-03-17 12:00 | DRG 470 ==
LOC: ENRESERVDT → ENRESERVTM → C.ACU 06:24 → C.3E 07:00
PROVIDERS: ADMIT Orthopaedic Surgery Sports Medicine; ATTEND Orthopaedic Surgery Sports Medicine
PROC: 0SRD0J9 Replacement of Left Knee Joint with Synthetic Substitute, Cemented, Open Approach (ICD-10-PCS; principal; 2017-03-14 08:30)
DX: M17.12 Unilateral primary osteoarthritis, left knee (principal); Z96.651 Presence of right artificial knee joint; I10 Essential (primary) hypertension; J45.909 Unspecified asthma, uncomplicated; F17.220 Nicotine dependence, chewing tobacco, uncomplicated